=== PATIENT | male | born 1960 | race Caucasian/White ===

== ENCOUNTER 2018-06-09 21:08 | Emergency (ER) | payer OTHER ==
[~2018-06-09] VITALS: Ht 162.6 cm; Wt 99.3 kg
[~2018-06-09 21:08] MED LIST: ATOR-2 PO; GLIP5TAB13 PO; HYDR-3601 PO; LEVO750T25 PO; LOSA50TA2 PO; METF-849 PO
[2018-06-09 21:40] VITALS: Ht 162.6 cm; Wt 99.3 kg
--- NOTE | 2018-06-09 23:29 | ERD ---
ER Documentation Chief Complaint Chief Complaint HERE FOR LT UPPER ARM PIC LINE REMOVAL HPI Patient is a 58-year-old male with recent osteomyelitis who presents for PICC line removal. The patient has a PICC line in the left upper extremity. He does not require antibiotics any longer so came to have his PICC line removed. The patient has no fevers or pus from the PICC line. He has no other complaints and just wants his PICC line removed. ROS All systems reviewed and are negative except as per history of present illness. Medications Home Meds Active Scripts Hydrocodone Bit-Acetaminophen (Hydrocodone Bit-APAP) 5-325MG Tablet, 1 TAB PO Q6 H PRN for .MOD PAIN 4-6 for 10 Days, #30 TAB Prov:MICA SMITH MD 04/30/18 Losartan Potassium* (Cozaar*) 50 Mg Tablet, 50 MG PO DAILY for 30 Days, #30 TAB 6 Refills Prov:MICA SMITH MD 04/30/18 Atorvastatin* (Atorvastatin*) 80 Mg Tablet, 80 MG PO HS for 30 Days, #30 TAB 6 Refills Prov:MICA SMITH MD 04/30/18 Levofloxacin* (Levaquin*) 750 Mg Tablet, 750 MG PO DAILY@06 for 35 Days, #35 TAB Prov:MICA SMITH MD 04/30/18 Metformin* (Glucophage*) 500 Mg Tab, 500 MG PO BID WITH MEALS for 30 Days, #60 TAB 6 Refills Prov:MICA SMITH MD 04/30/18 Glipizide* (Glipizide*) 5 Mg Tablet, 5 MG PO BID for 30 Days, #60 TAB 6 Refills Prov:MICA SMITH MD 04/30/18 Allergies Allergies: Coded Allergies: No Known Allergy (Unverified , 03/10/15) PMhx/Soc History of Surgery: No Anesthesia Reaction: No Hx Neurological Disorder: No Hx Respiratory Disorders: No Hx Cardiac Disorders: Yes (HTN) Hx Psychiatric Problems: No Hx Miscellaneous Medical Probl: Yes (HTN, DMII, ) Hx Alcohol Use: No Hx Substance Use: No Hx Tobacco Use: No Smoking Status: Never smoker FmHx Family History: No diabetes Physical Exam Vitals Vital Signs Date Temp Pulse Resp B/P (MAP) Pulse Ox O2 O2 Flow FiO2 Time Delivery Rate 06/09/18 99.3 96 19 168/77 97 21:40 (107) Physical Exam Const: No acute distress Head: Atraumatic Eyes: Normal Conjunctiva ENT: Normal External Ears, Nose and Mouth. Neck: Full range of motion. No meningismus. Resp: Clear to auscultation bilaterally Cardio: Regular rate and rhythm, no murmurs Abd: Soft, non tender, non distended. Normal bowel sounds Skin: No petechiae or rashes Back: No midline or flank tenderness Ext: PICC line in the left upper extremity without signs of infection Neur: Awake and alert Psych: Normal Mood and Affect Procedures/MDM PICC line removal: I used gentle pulling motion and was easily able to remove the PICC line in toto without difficulty. There was no blood loss. Patient tolerated the entire procedure. Band-Aid was applied. Patient is a 58-year-old male presents for PICC line removal. I remove the PICC line without difficulty. The patient will be discharged and can return for any worsening symptoms. Departure Diagnosis: Primary Impression: PIC line (peripherally inserted central catheter) removal Condition: Fair Patient Instructions: Picc Line Care Referrals: Your doctor Additional Instructions: Llame al doctor serge johnson (Referral Sources) MAANA y mario amilcar HUGO PARA DENTRO DE AMILCAR SEMANA. Dgale a la secretaria que nosotros le instruimos hacer esta hugo.Avise o llame si magallon condicin se empeora antes de la hugo. LU JONES MD Jun 09, 2018 23:29
== END 2018-06-09 21:57 | disposition home or self-care (01) ==
LOC: E/R 21:08
DX: Z45.2 Encounter for adjustment and management of vascular access device (principal); I10 Essential (primary) hypertension; E11.9 Type 2 diabetes mellitus without complications; Z79.84 Long term (current) use of oral hypoglycemic drugs
CPT/HCPCS: 99282